=== PATIENT | male | born 1975 ===

== ENCOUNTER 2016-12-07 10:13 | Emergency (ER) | payer OTHER ==
[2016-12-07] MEDS ORDERED: MOTRIN PO ONE (14:31)
--- NOTE | 2016-12-07 15:04 | Emergency Department Report ---
ED General Adult HPI - General Chief complaint: Upper Respiratory Infection Stated complaint: COLD SYMPTOMS Source: patient Mode of arrival: Ambulatory Limitations: No Limitations - History of Present Illness Initial comments: 41-year-old male comes in for complaint of body aches and nausea and vomiting that started at midnight last night. Patient reports that he had diarrhea 4 stools yesterday as well as vomited 3 with the last been about 3 hours ago. He denies any nausea at this time. -: Gradual, Last night Severity scale (0 -10): 7 - Related Data Allergies Allergy/AdvReac Type Severity Reaction Status Date / Time No Known Allergies Allergy Unverified 12/07/16 11:34 ED Review of Systems ROS: Stated complaint: COLD SYMPTOMS Other details as noted in HPI Constitutional: chills. denies: fever Respiratory: denies: cough Gastrointestinal: abdominal pain, nausea, vomiting, diarrhea ED Past Medical Hx - Past Medical History Previous Medical History?: No - Surgical History Past Surgical History?: No - Social History Smoking Status: Never Smoker Substance Use Type: None ED Physical Exam - General Limitations: No Limitations ED Course Vital Signs 12/07/16 11:38 Temperature 98.6 F Pulse Rate 76 Respiratory 20 Rate Blood Pressure 101/56 O2 Sat by Pulse 100 Oximetry - Reevaluation(s) Reevaluation #1: 12/07/16 15:05 Patient was given water which she was able to keep down 2 cups. He denies any nausea at this time. We also gave him ibuprofen he reports that he feels a lot better since he's had ibuprofen. He feels like he can be discharged home. Critical care attestation.: If time is entered above; I have spent that time in minutes in the direct care of this critically ill patient, excluding procedure time. ED Disposition Clinical Impression: Nausea and vomiting in adult patient, Diarrhea Disposition: DISCHARGED TO HOME OR SELFCARE Is pt being admited?: No Does the pt Need Aspirin: No Condition: Stable Instructions: Acute Nausea and Vomiting (ED) Additional Instructions: Gradually advance her diet from clear liquids to solids. If her symptoms gets worse or does not improve in the next 24-48 hours to follow-up with primary care provider. We will refer you to 1 that she can follow-up with. Referrals: ANA COVINGTON MD [Primary Care Provider] - 3-5 Days LEONID SHELTON MD [Staff Physician] - 3-5 Days Forms: Work/School Release Form(ED)
[2016-12-07 15:20] VITALS: BP 97/61
== END 2016-12-07 15:21 | disposition home or self-care (01) ==
LOC: ED 10:13
DX: R11.2 Nausea with vomiting, unspecified (principal); R19.7 Diarrhea, unspecified; M79.1 Myalgia
CPT/HCPCS: 99282